=== PATIENT | male | born 1960 | race Native Hawaiian/Other Pacific Islander ===

== ENCOUNTER 2016-08-29 10:47 | Emergency (ER) | payer OTHER ==
[~2016-08-29] VITALS: Ht 157.5 cm; Wt 75.7 kg
[2016-08-29 10:51] VITALS: BP 132/77
--- NOTE | 2016-08-29 10:59 | NUR ---
PT PRESENTS TO ER FOR EVALUATION OF LACERATION TO LEFT INDEX FINGER SUSTAINED WHILE REMOVING RAIN GUTTERS THIS AM.PAIN SCALE OF 2/10; HX DM.DENIES NUMBNESS ON LEFT HAND;DENIES CP/SOB/F/N/V/COUGH AT THIS TIME;AAOX4;NO ACUTE DISTRESS NOTED AT THIS TIME;SKIN IS WARM AND DRY;STEADY GAIT;UNLABORED BREATHING W/ SYMMETRICAL EXPANSION;HOB ELEVATED;NEEDS ATTENDED;WOUND CLEANSING DONE;SAFETY PRECAUTION INSTIUTTED; MADE AWARE OF PT'S CONDITION.
--- NOTE | 2016-08-29 11:08 | NUR ---
DR SULLIVAN AT BEDSIDE
[2016-08-29] MEDS ORDERED: LIDOCAINE 1% 500 MG/50 ML VIAL INJ ONE (11:10)
--- NOTE | 2016-08-29 11:37 | NUR ---
PT AAOX4;NO ACUTE DISTRESS NOTED AT THIS СЕРГЕЙ;WILL CONTINUE TO MONITOR PT.
--- NOTE | 2016-08-29 11:40 | NUR ---
1 % XYLOCAINE WAS GIVEN BY ERMD DURING PROCEDURE.
[2016-08-29] MEDS ORDERED: BACITRACIN OINT 500 UNITS/GM PKT TP ONE (11:49)
--- NOTE | 2016-08-29 11:54 | NUR ---
Patient discharged with v/s stable. Written and verbal after care instructions given and explained. Patient alert, oriented and verbalized understanding of instructions. Ambulatory with steady gait. All questions addressed prior to discharge. ID band removed. Patient advised to follow up with PMD. Rx of MOTRIN AND BACTRIM given. Patient educated on indication of medication including possible reaction and side effects. Opportunity to ask questions provided and answered.
[2016-08-29 11:56] VITALS: BP 132/77
== END 2016-08-29 11:54 | disposition home or self-care (01) ==
LOC: MED 10:47
DX: S61.211A Laceration without foreign body of left index finger without damage to nail, initial encounter (principal); E11.9 Type 2 diabetes mellitus without complications; X58.XXXA Exposure to other specified factors, initial encounter; Y93.89 Activity, other specified; Y92.89 Other specified places as the place of occurrence of the external cause; Y99.8 Other external cause status
CPT/HCPCS: 12001; 90471; 90715; 99283; J2001